=== PATIENT | male | born 1985 | race Caucasian/White ===

== ENCOUNTER 2017-12-23 01:06 | Emergency (ER) | payer SELFPAY ==
[2017-12-23] MEDS ORDERED: KETOROLAC 30 MG/ML INJ ONE (02:14)
[2017-12-23] MEDS ORDERED: NA CHLORIDE 0.9% 1,000 ML ONE (02:14)
[2017-12-23 03:07] LABS: Absolute Lymphocytes (CBC) 1.6 K/uL (0.7-4.9); Absolute Monocytes 0.6 K/uL (0.1-1.3); Absolute Neutrophil 4.8 K/uL (1.8-8.0); Basophils % 0.9 % (0-1.3); Eosinophils % 3.4 % (0-4.4); Hematocrit 37.8 % (39.6-49.0); Lymphocytes % 22.2 % (15.3-44.8); MCH 30.2 pg (27.0-35.0); MCV 85.8 fL (80-100); Monocytes % 7.8 % (3.3-12.3); RBC Red Blood Cell Count 4.41 M/uL (4.33-5.43)
[2017-12-23 03:16] LABS: ALT/SGPT 30 U/L (12-78); AST/SGOT 33 U/L (15-37); Albumin 3.8 g/dL (3.4-5.0); Alkaline Phosphatase 74 U/L (45-117); BUN Blood Urea Nitrogen 10 mg/dL (7-18); Bicarbonate 27 mmol/L (21-32); Bilirubin Direct 0.2 mg/dL (0-0.2); Bilirubin Total 0.6 mg/dL (0.2-1.0); Glucose Level 82 mg/dL (74-106); Lipase 91 U/L (73-393); Potassium 3.6 mmol/L (3.5-5.1); Protein, Total 7.4 g/dL (6.4-8.2); Sodium Level 137 mmol/L (136-145)
--- NOTE | 2017-12-23 04:39 | EDPHYS ---
Physician Documentation [facility] Name: Wagner Nicholas Age: 32 yrs Sex: Male : 1985 Arrival Date: 12/23/2017 Time: 01:09 Bed 13 Private MD: ED Physician Geoffrey Hernandez HPI: 12/23 02:07 This 32 yrs old Male presents to ER via Ambulatory with complaints of Fall olga Injury, Pain All Over. 02:07 Details of fall: The patient fell from a height, off a roof, approximately 10 feet. olga Onset: The symptoms/episode began/occurred just prior to arrival. Associated injuries: The patient sustained neck injury, upper back injury, anterior aspect of left shoulder, left bicep, posterior aspect of left shoulder and left tricep, decreased range of motion, painful injury. Severity of symptoms: At their worst the symptoms were mild, moderate, in the emergency department the symptoms are unchanged. The patient has not experienced similar symptoms in the past. Historical: - Allergies: : No Known Allergies; bb - Home Meds: : None [Active]; bb - PMHx: : None; bb - PSHx: : None; bb - Immunization history: Last tetanus immunization: unknown. - Social history:: Smoking status: Patient uses tobacco products, smokes one pack cigarettes per day. - Ebola Screening: : No symptoms or risks identified at this time. - Family history:: not pertinent. ROS: 02:07 Constitutional: Negative for fever, chills, and weight loss, Eyes: Negative for injury, olga pain, redness, and discharge, ENT: Negative for injury, pain, and discharge, Cardiovascular: Negative for chest pain, palpitations, and edema, Respiratory: Negative for shortness of breath, cough, wheezing, and pleuritic chest pain, Abdomen/GI: Negative for abdominal pain, nausea, vomiting, diarrhea, and constipation, : Negative for injury, bleeding, discharge, and swelling, Skin: Negative for injury, rash, and discoloration, Neuro: Negative for headache, weakness, numbness, tingling, and seizure. 02:07 Neck: Positive for pain with movement, pain at rest. 02:07 Back: Positive for decreased range of motion, pain at rest, of the left subscapular area, right subscapular area, thoracic area and lumbar area. 02:07 MS/extremity: Positive for pain, tenderness, of the anterior aspect of left shoulder and posterior aspect of left shoulder. Exam: 02:07 Constitutional: This is a well developed, well nourished patient who is awake, alert, olga and in no acute distress. Head/Face: Normocephalic, atraumatic. Eyes: Pupils equal round and reactive to light, extra-ocular motions intact. Lids and lashes normal. Conjunctiva and sclera are non-icteric and not injected. Cornea within normal limits. Periorbital areas with no swelling, redness, or edema. ENT: Nares patent. No nasal discharge, no septal abnormalities noted. Tympanic membranes are normal and external auditory canals are clear. Oropharynx with no redness, swelling, or masses, exudates, or evidence of obstruction, uvula midline. Mucous membranes moist. Neck: Trachea midline, no thyromegaly or masses palpated, and no cervical lymphadenopathy. Supple, full range of motion without nuchal rigidity, or vertebral point tenderness. No Meningismus. Chest/axilla: Normal chest wall appearance and motion. Nontender with no deformity. No lesions are appreciated. Cardiovascular: Regular rate and rhythm with a normal S1 and S2. No gallops, murmurs, or rubs. Normal PMI, no JVD. No pulse deficits. Respiratory: Lungs have equal breath sounds bilaterally, clear to auscultation and percussion. No rales, rhonchi or wheezes noted. No increased work of breathing, no retractions or nasal flaring. Abdomen/GI: Soft, non-tender, with normal bowel sounds. No distension or tympany. No guarding or rebound. No evidence of tenderness throughout. Back: No spinal tenderness. No costovertebral tenderness. Full range of motion. Male : Normal genitalia with no discharge or lesions. Skin: Warm, dry with normal turgor. Normal color with no rashes, no lesions, and no evidence of cellulitis. Neuro: Awake and alert, GCS 15, oriented to person, place, time, and situation. Cranial nerves II-XII grossly intact. Motor strength 5/5 in all extremities. Sensory grossly intact. Cerebellar exam normal. Normal gait. Psych: Awake, alert, with orientation to person, place and time. Behavior, mood, and affect are within normal limits. 02:07 Back: pain, that is mild, that is moderate, ROM is painful, normal spinal alignment noted, CVA tenderness, is absent, muscle spasm, is appreciated in the left scapular area, right scapular area, left subscapular area, right subscapular area, left mid back and right mid back. 02:07 : Exam negative for acute changes. 02:07 Musculoskeletal/extremity: Extremities: noted in the anterior aspect of left shoulder, left bicep, posterior aspect of left shoulder and left tricep: decreased ROM, pain. 02:07 Neuro: Exam negative for acute changes, Orientation: is normal, Mentation: is normal, appropriate for stated age, no acute changes, Memory: is normal, appropriate for stated age, no acute changes, Cranial nerves: grossly normal, is grossly normal based on the patient's age, no acute changes, Cerebellar function: is grossly normal, is grossly normal based on the patient's age, no acute changes. Vital Signs: 01:22 BP 127 / 79; Pulse 76; Resp 16 S; Temp 98.9(O); Pulse Ox 97% on R/A; Weight 81.65 kg bb (R); Height 5 ft. 10 in. (177.80 cm) (R); Pain 10/10; 03:15 BP 124 / 83; Pulse 71; Resp 14; Pulse Ox 100% ; bp 05:00 BP 120 / 75; Pulse 81; Resp 14; Pulse Ox 100% ; bp 01:22 Body Mass Index 25.83 (81.65 kg, 177.80 cm) [place] Coma Score: 01:22 Eye Response: spontaneous(4). Verbal Response: oriented(5). Motor Response: obeys bb commands(6). Total: 15. Trauma Score (Adult): 01:22 Eye Response: spontaneous(1); Verbal Response: oriented(1); Motor Response: obeys bb commands(2); Systolic BP: > 89 mm Hg(4); Respiratory Rate: 10 to 29 per min(4); [place] Score: 15; Trauma Score: 12 MDM: 01:42 Patient medically screened. [facility] 04:43 Data reviewed: vital signs, nurses notes, lab test result(s), radiologic studies, CT olga scan, plain films. 12/23 02:06 Order name: Basic Metabolic Panel; Complete Time: 04:07 [facility] 12/23 02:06 Order name: CBC with Diff; Complete Time: 04:07 [facility] 12/23 02:06 Order name: Creatinine for Radiology; Complete Time: 04:07 [facility] 12/23 02:07 Order name: LFT's; Complete Time: 04:07 [facility] 12/23 02:07 Order name: Lipase; Complete Time: 04:07 [facility] 12/23 02:54 Order name: Urine Dipstick--Ancillary (enter results) rg2 12/23 02:06 Order name: CT Traumagram (Head C Spine CAP W Con) [facility] 12/23 02:06 Order name: Labs collected and sent; Complete Time: 02:45 [facility] 12/23 02:06 Order name: Urine Dipstick-Ancillary (obtain specimen); Complete Time: 02:56 [facility] 12/23 02:06 Order name: Shoulder Left (2 View) XRAY [facility] 12/23 02:14 Order name: Tib Fib Left XRAY [facility] Administered Medications: 02:30 Drug: NS 0.9% 1000 ml Route: IV; Rate: 1 bolus; Site: right forearm; bp 04:50 Follow up: IV Status: Completed infusion; IV Intake: 1000ml bp 02:30 Drug: TORadol 30 mg Route: IVP; Site: right forearm; bp 03:25 Follow up: Response: Pain is decreased bp 05:09 Drug: [place] 10 mg-325 mg 1 tabs Route: PO; bp 05:09 Follow up: Response: Medication administered at discharge. bp Disposition: 12/23/17 04:39 Discharged to Home. Impression: Fall (on) (from) unspecified stairs and steps, Pain in left shoulder, Pain in left leg, Strain of muscle and tendon of back wall of thorax, Strain of muscle, fascia and tendon at neck level, Fracture of second thoracic vertebra - 30 % superior end plate fx. - Condition is Stable. - Discharge Instructions: Back Pain, Adult, Back, Compression Fracture, Musculoskeletal Pain, Shoulder Pain, Shoulder Pain, Rldr-[id number], Cervical Sprain, [id number], Back Pain, Adult, Eofi-wt-Jrgq. - Prescriptions for Robaxin 500 mg Oral Tablet - take 2 tablet by ORAL route every 6 hours As needed; 40 tablet. Ibuprofen 600 mg Oral Tablet - take 1 tablet by ORAL route every 6 hours As needed take with food; 20 tablet. Tramadol 50 mg Oral Tablet - take 1 tablet by ORAL route every 8 hours as needed; 30 tablet. - Medication Reconciliation Form, Thank You Letter, Antibiotic Education, Prescription Opioid Use form. - Follow up: Private Physician; When: 2 - 3 days; Reason: Recheck today's complaints, Continuance of care, Re-evaluation by your physician. Follow up: Markell Francisco MD; When: 2 - 3 days; Reason: Recheck today's complaints, Re-evaluation by your physician. - Problem is new. - Symptoms have improved. Signatures: Dispatcher [employer] EDMS Geoffrey Hernandez MD MD cha Ballard, Brenda, RN RN Emiliano Orona RN RN bp Corrections: (The following items were deleted from the chart) 04:44 04:39 12/23/2017 04:39 Discharged to Home. Impression: Fall (on) (from) unspecified olga stairs and steps; Pain in left shoulder; Pain in left leg; Strain of muscle and tendon of back wall of thorax; Strain of muscle, fascia and tendon at neck level. Condition is Stable. Discharge Instructions: Back Pain, Adult, Musculoskeletal Pain, Shoulder Pain, Shoulder Pain, [id number]-[id number], Cervical Sprain, Mubf-cf-Xiyx, Back Pain, Adult, Uaqs-go-Fred. Prescriptions for Robaxin 500 mg Oral Tablet - take 2 tablet by ORAL route every 6 hours As needed; 40 tablet, Tylenol-Codeine #3 300-30 mg Oral Tablet - take 2 tablet by ORAL route every 6 hours As needed; 30 tablet, Ibuprofen 600 mg Oral Tablet - take 1 tablet by ORAL route every 6 hours As needed take with food; 20 tablet. and Forms are Medication Reconciliation Form, Thank You Letter, Antibiotic Education, Prescription Opioid Use. Follow up: Private Physician; When: 2 - 3 days; Reason: Recheck today's complaints, Continuance of care, Re-evaluation by your physician. Problem is new. Symptoms have improved. [facility] 05:13 04:44 12/23/2017 04:39 Discharged to Home. Impression: Fall (on) (from) unspecified bp stairs and steps; Pain in left shoulder; Pain in left leg; Strain of muscle and tendon of back wall of thorax; Strain of muscle, fascia and tendon at neck level; Fracture of second thoracic vertebra - 30 % superior end plate fx. Condition is Stable. Discharge Instructions: Back Pain, Adult, Musculoskeletal Pain, Shoulder Pain, Shoulder Pain, Sqdw-um-Mfsq, Cervical Sprain, Zslk-hu-Hran, Back Pain, Adult, Hfaj-xd-Bpmi. Prescriptions for Robaxin 500 mg Oral Tablet - take 2 tablet by ORAL route every 6 hours As needed; 40 tablet, Tylenol-Codeine #3 300-30 mg Oral Tablet - take 2 tablet by ORAL route every 6 hours As needed; 30 tablet, Ibuprofen 600 mg Oral Tablet - take 1 tablet by ORAL route every 6 hours As needed take with food; 20 tablet. and Forms are Medication Reconciliation Form, Thank You Letter, Antibiotic Education, Prescription Opioid Use. Follow up: Private Physician; When: 2 - 3 days; Reason: Recheck today's complaints, Continuance of care, Re-evaluation by your physician. Follow up: Markell Francisco; When: 2 - 3 days; Reason: Recheck today's complaints, Re-evaluation by your physician. Problem is new. Symptoms have improved. olga
--- NOTE | 2017-12-23 04:39 | ER ---
Nurse's Notes [facility] Name: Wagner Nicholas Age: 32 yrs Sex: Male : 1985 Arrival Date: 12/23/2017 Time: 01:09 Bed 13 Private MD: Diagnosis: Fall (on) (from) unspecified stairs and steps;Pain in left shoulder;Pain in left leg;Strain of muscle and tendon of back wall of thorax;Strain of muscle, fascia and tendon at neck level;Fracture of second thoracic vertebra-30 % superior end plate fx Presentation: 12/23 01:22 Presenting complaint: Patient states: he was helping his dad build a carport today and bb fell off of the roof at approx 1400 and is concerned because he is having back pain, left leg, left sided rib pain, and left shoulder pain. Pt denies LOC states he did not hit his head, he took 2 ibuprofen at approx 2200. Care prior to arrival: None. Mechanism of Injury: Fall from roof. Trauma event details: Injury occurred in the [facility], Injury occurred: at home. Injury occurred: December 22, 2017. 01:22 Acuity: ANAMIKA 3 bb 01:22 Method Of Arrival: Ambulatory bb 01:26 Transition of care: patient was not received from another setting of care. Onset of bb symptoms was December 22, 2017 at 14:00. Risk Assessment: Do you want to hurt yourself or someone else? Patient reports no desire to harm self or others. Initial Sepsis Screen: Does the patient meet any 2 criteria? No. Patient's initial sepsis screen is negative. Does the patient have a suspected source of infection? No. Patient's initial sepsis screen is negative. Triage Assessment: 01:30 General: Appears in no apparent distress. uncomfortable, slender, Behavior is bp cooperative, appropriate for age, anxious. Historical: - Allergies: 01: No Known Allergies; bb - Home Meds: 01: None [Active]; bb - PMHx: : None; bb - PSHx: : None; bb - Immunization history: Last tetanus immunization: unknown. - Social history:: Smoking status: Patient uses tobacco products, smokes one pack cigarettes per day. - Ebola Screening: : No symptoms or risks identified at this time. - Family history:: not pertinent. Screenin:22 Abuse screen: Denies threats or abuse. Tuberculosis screening: No symptoms or risk bb factors identified. 05:12 Nutritional screening: No deficits noted. Fall Risk Fall in past 12 months (25 points). bp No secondary diagnosis (0 pts). No IV (0 pts). Ambulatory Aid- None/Bed Rest/Nurse Assist (0 pts). Gait- Normal/Bed Rest/Wheelchair (0 pts) Mental Status- Oriented to own ability (0 pts). Total [place] Fall Scale indicates Low Risk Score (25-44 pts). Fall prevention measures have been instituted. Side Rails Up X 2 Placed close to Nursing Station Frequent Obs/Assesments occuring As available Patient and Family Educated on Fall Prevention Program and strategies. 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 NO bp OBVIOUS TRAUMA, VS STABLE. 02:45 Reassessment: PT TO CT WITH ACIDITY TESTER. bp 03:22 Reassessment: PT RETURNING TO CT WITH ACIDITY TESTER. bp 03:53 Reassessment: PT RETURNED FROM CT. ALL CURRENT ORDERS COMPLETED. bp 05:11 Reassessment: PT D/C HOME AMBULATORY, DX WITH T2 ANTERIOR WEDGE FX. Pain: Complains of bp pain in back. Neuro: Level of Consciousness is awake, alert, obeys commands, Oriented to person, place, time, situation, Appropriate for age Barrel Cleaner are equal bilaterally Moves all extremities. Full function Gait is steady. Vital Signs: 01:22 BP 127 / 79; Pulse 76; Resp 16 S; Temp 98.9(O); Pulse Ox 97% on R/A; Weight 81.65 kg bb (R); Height 5 ft. 10 in. (177.80 cm) (R); Pain 10/10; 03:15 BP 124 / 83; Pulse 71; Resp 14; Pulse Ox 100% ; bp 05:00 BP 120 / 75; Pulse 81; Resp 14; Pulse Ox 100% ; bp 01:22 Body Mass Index 25.83 (81.65 kg, 177.80 cm) bb [place] Coma Score: 01:22 Eye Response: spontaneous(4). Verbal Response: oriented(5). Motor Response: obeys bb commands(6). Total: 15. Trauma Score (Adult): :22 Eye Response: spontaneous(1); Verbal Response: oriented(1); Motor Response: obeys bb commands(2); Systolic BP: > 89 mm Hg(4); Respiratory Rate: 10 to 29 per min(4); [place] Score: 15; Trauma Score: 12 ED Course: 01:09 Patient arrived in ED. am2 01:17 Emiliano Calvillo, RN is Primary Nurse. bp 01:22 Patient has correct armband on for positive identification. Bed in low position. Call bb light in reach. Side rails up X 1. Patient maintains SpO2 saturation greater than 95% on room air. 01:22 Patient maintains SpO2 saturation greater than 95% on room air. bb 01:24 Triage completed. bb 01:27 Patient placed in an exam room, on a stretcher, on pulse oximetry. bb 01:42 Geoffrey Hernandez MD is Attending Physician. olga 02:21 X-ray completed. Portable x-ray completed in exam room. Patient tolerated procedure kw well. 02:30 Inserted saline lock: 20 gauge in right forearm, using aseptic technique. Blood bp collected. 02:55 Shoulder Left (2 View) XRAY In Process Unspecified. EDMS 02:55 Tib Fib Left XRAY In Process Unspecified. EDMS 03:14 Radiology exam delayed due to lab results not completed at this time. (BUN/Creatinine). kw1 03:25 CT Traumagram (Head C Spine CAP W Con) Sent. bp 03:[address] via wheelchair. kw1 03:45 CT completed. Patient tolerated procedure well. Patient moved back from CT. kw1 04:18 CT Traumagram (Head C Spine CAP W Con) In Process Unspecified. EDMS 04:44 Markell Francisco MD is Referral Physician. olga 05:09 No provider procedures requiring assistance completed. IV discontinued. bp Administered Medications: 02:30 Drug: NS 0.9% 1000 ml Route: IV; Rate: 1 bolus; Site: right forearm; bp 04:50 Follow up: IV Status: Completed infusion; IV Intake: 1000ml bp 02:30 Drug: TORadol 30 mg Route: IVP; Site: right forearm; bp 03:25 Follow up: Response: Pain is decreased bp 05:09 Drug: [place] 10 mg-325 mg 1 tabs Route: PO; bp 05:09 Follow up: Response: Medication administered at discharge. bp Intake: 01:22 PO: 0ml; Total: 0ml. bb 04:50 IV: 1000ml; Total: 1000ml. bp Outcome: 04:39 Discharge ordered by . olga 05:10 Discharged to home ambulatory, with family. bp 05:10 Condition: stable 05:10 Discharge instructions given to patient, Instructed on discharge instructions, follow up and referral plans. medication usage, Demonstrated understanding of instructions, follow-up care, medications, Prescriptions given X 3. 05:13 Patient left the ED. bp Signatures: Dispatcher [employer] EDMS Geoffrey Hernandez MD MD cha Ballard, Brenda, RN RN Griselda Coppola Amanda am2 Peltier, Brian, RN RN Chandrika Torres kw1
[2017-12-23] MEDS ORDERED: HYDROCODONE/APAP 10/325 TAB ONE (04:57)
[2017-12-23 05:05] LABS: Urine Blood NEGATIVE (NEG); Urine Glucose NEGATIVE (NEG); Urine Protein NEGATIVE (NEG); Urine pH 6.5 (5.0-7.0)
--- NOTE | 2017-12-23 08:27 | RAD REPORT ---
EXAM DESCRIPTION: RAD - Shoulder Left 2 View - 12/23/2017 2:54 am CLINICAL HISTORY: PAIN Trauma, fall from height COMPARISON: No comparisons FINDINGS: No acute fracture or dislocation is seen.
--- NOTE | 2017-12-23 08:36 | RAD REPORT ---
EXAM DESCRIPTION: CT - Head C Spine Cap Sabino Petit - 12/23/2017 4:52 am CLINICAL HISTORY: Trauma, head and neck injury. Chest, abdomen and pelvis pain. PAIN COMPARISON: No comparisons TECHNIQUE: CT head without contrast. CT cervical spine without contrast with coronal and sagittal reformatted images. CT chest, abdomen and pelvis with IV contrast (approximately 100 mL nonionic IV contrast) with sharma l and sagittal reformatted images of the spine. All CT scans are performed using dose optimization technique as appropriate and may include automated exposure control or mA/KV adjustment according to patient size. FINDINGS: CT HEAD WITHOUT CONTRAST: No intracranial hemorrhage, hydrocephalus or extra-axial fluid collection. No areas of brain edema o r midline shift. The paranasal sinuses and mastoids are clear. The calvarium is intact. CT CERVICAL SPINE WITHOUT CONTRAST: No fracture or subluxation. The prevertebral soft tissues are normal in thickness. CT CHEST, ABDOMEN, PELVIS WITH CONTRAST: The lungs are clear.No pneumothorax or pericardial/pleural fluid. No evidence of intra-abdominal visceral injury, free fluid or free air. No concerning pelvic findings. Wedging of the superior endplate of the T2 vertebral body is noted with 25% loss of vertebral body he ight suspected. No canal compromise seen. Age is indeterminate. IMPRESSION: Superior endplate wedge compression fracture affecting the T2 vertebral body is noted. N o canal compromise. Age is indeterminate, but this could be an acute injury. Consider followup MR [place]ak[place] ging of the thoracic spine for further assessment. Elsewhere, no acute trauma related finding seen.
--- NOTE | 2017-12-23 08:37 | RAD REPORT ---
EXAM DESCRIPTION: RAD - Tib Fib Left - 12/23/2017 2:54 am CLINICAL HISTORY: Pain;Swelling Trauma, fall, pain COMPARISON: No comparisons FINDINGS: No fracture or dislocation is seen. Small plantar calcaneal spur noted.
== END 2017-12-23 05:13 | disposition home or self-care (01) ==
LOC: ER 01:06
DX: S22.028A Other fracture of second thoracic vertebra, initial encounter for closed fracture (principal); S29.012A Strain of muscle and tendon of back wall of thorax, initial encounter; S16.1XXA Strain of muscle, fascia and tendon at neck level, initial encounter; W13.2XXA Fall from, out of or through roof, initial encounter; Y93.9 Activity, unspecified; Y92.9 Unspecified place or not applicable; F17.210 Nicotine dependence, cigarettes, uncomplicated
CPT/HCPCS: 36415; 70450; 71260; 72125; 74177; 80048; 80076; 81003; 83690; 85025; 96361; 96374; 99285; J7030; Q9967

== ENCOUNTER 2021-04-10 17:22 | Emergency (ER) | payer SELFPAY ==
[2021-04-10] MEDS ORDERED: TETANUS & DIPHTHERIA TOX,ADULT 0.5 ML VIAL ONE (18:09)
--- NOTE | 2021-04-10 19:48 | RAD REPORT ---
EXAM DESCRIPTION: RAD - Hand Left 3 View - 04/10/2021 6:45 pm CLINICAL HISTORY: PAIN, no trauma history specified, site of pain not specified COMPARISON: None. FINDINGS: No fracture, dislocation or periosteal reaction noted. No acute bone or joint finding evid ent. No foreign body or other soft tissue abnormality. IMPRESSION: Negative left hand examination.
--- NOTE | 2021-04-10 20:04 | ER ---
Nurse's Notes [facility] Name: Wagner Nicholas Age: 35 yrs Sex: Male : 1985 Arrival Date: 04/10/2021 Time: 17:25 Bed 9 Private MD: Diagnosis: Abrasion of left hand Presentation: 04/10 17:37 Chief complaint: Patient states: "I smashed my finger today at work with a backhoe.". ld1 Coronavirus screen: At this time, the client does not indicate any symptoms associated with coronavirus-19. Ebola Screen: No symptoms or risks identified at this time. Initial Sepsis Screen: Does the patient meet any 2 criteria? No. Patient's initial sepsis screen is negative. Does the patient have a suspected source of infection? No. Patient's initial sepsis screen is negative. Risk Assessment: Do you want to hurt yourself or someone else? Patient reports no desire to harm self or others. Onset of symptoms was April 10, 2021. 17:37 Method Of Arrival: Ambulatory ld1 17:37 Acuity: ANAMIKA 4 ld1 Triage Assessment: 17:39 General: Appears in no apparent distress. comfortable, Behavior is calm, cooperative, ld1 appropriate for age. Pain: Complains of pain in dorsal aspect of distal phalanx of left thumb and dorsal aspect of proximal phalanx of left thumb Pain does not radiate. Pain currently is 7 out of 10 on a pain scale. Quality of pain is described as sharp, Pain began 2 hours ago. Is continuous. EENT: No signs and/or symptoms were reported regarding the EENT system. Neuro: Level of Consciousness is awake, alert, obeys commands, Oriented to person, place, time, situation. Cardiovascular: Capillary refill < 3 seconds Patient's skin is warm and dry. Respiratory: Airway is patent Respiratory effort is even, unlabored, Respiratory pattern is regular, symmetrical. GI: Abdomen is flat, non-distended. : No signs and/or symptoms were reported regarding the genitourinary system. Derm: No signs and/or symptoms reported regarding the dermatologic system. Musculoskeletal: Reports pain in dorsal aspect of distal phalanx of left thumb and dorsal aspect of proximal phalanx of left thumb. Injury Description: Crush injury sustained to dorsal aspect of distal phalanx of left thumb, dorsal aspect of proximal phalanx of left thumb and left thumbnail. Historical: - Allergies: 17:39 No Known Allergies; ld1 - Home Meds: 17:39 None [Active]; ld1 - PMHx: 17:39 None; ld1 - PSHx: 17:39 None; ld1 - Immunization history:: Adult Immunizations not up to date, Client reports having NOT received the Covid vaccine. - Social history:: Smoking status: Patient reports the use of cigarette tobacco products, smokes one-half pack cigarettes per day, Patient uses alcohol. Screenin:41 Abuse screen: Denies threats or abuse. Denies injuries from another. Nutritional ld1 screening: No deficits noted. Tuberculosis screening: No symptoms or risk factors identified. Fall Risk None identified. Assessment: 17:41 Reassessment: See triage assessment. ld1 18:58 Reassessment: Patient appears in no apparent distress at this time. Patient and/or ld1 family updated on plan of care and expected duration. Pain level reassessed. Patient is alert, oriented x 3, equal unlabored respirations, skin warm/dry/pink. 19:33 Reassessment: Patient appears in no apparent distress at this time. Patient and/or fu family updated on plan of care and expected duration. Pain level reassessed. Patient is alert, oriented x 3, equal unlabored respirations, skin warm/dry/pink. Vital Signs: 17:37 BP 132 / 68; Pulse 86; Resp 18; Temp 98.3(O); Pulse Ox 100% on R/A; Weight 85.73 kg; ld1 Height 5 ft. 10 in. (177.80 cm); Pain 7/10; 18:58 BP 138 / 74; Pulse 88; Resp 18; Pulse Ox 100% on R/A; ld1 17:37 Body Mass Index 27.12 (85.73 kg, 177.80 cm) ld1 ED Course: 17:25 Patient arrived in ED. as 17:30 Shea Rodriguez FNP-C is PHCP. kb 17:30 Juanito Beasley MD is Attending Physician. kb 17:33 Ayde Mccollum, JENNY is Primary Nurse. ld1 17:39 Triage completed. ld1 17:39 Arm band placed on right wrist. ld1 17:41 Patient has correct armband on for positive identification. Bed in low position. Call ld1 light in reach. Side rails up X2. Pulse ox on. NIBP on. Door closed. Noise minimized. Warm blanket given. 17:41 No provider procedures requiring assistance completed. ld1 18:45 Hand Left 3 View XRAY In Process Unspecified. EDMS 20:05 Patient did not have IV access during this emergency room visit. fu Administered Medications: 17:49 Drug: Tetanus-Diphtheria Toxoid Adult 0.5 ml {Hyperbaric Technologist: [employer]. Exp: ld1 10/24/2022. Lot #: [id number]. } Route: IM; Site: right deltoid; 19:00 Follow up: Response: No adverse reaction fu Outcome: 20:03 Discharge ordered by . [email or web address] 20:08 Discharged to home ambulatory. fu 20:08 Condition: good 20:08 Discharge instructions given to patient, Did not sign discharge instruction before leaving 20:10 Patient left the ED. fu Signatures: Dispatcher [employer] EDCO Shea Rodriguez, EVI-Marissa STEVE-Kiya Ayala Felix, RN RN Ayde Mccollum, JENNY RN ld1
--- NOTE | 2021-04-10 20:04 | EDPHYS ---
Physician Documentation [facility] Name: Wagner Nicholas Age: 35 yrs Sex: Male : 1985 Arrival Date: 04/10/2021 Time: 17:25 Bed 9 Private MD: ED Physician Juanito Beasley HPI: 04/10 21:00 This 35 yrs old Male presents to ER via Ambulatory with complaints of Thumb kb Injury. 21:00 The patient or guardian reports an abrasion, injury, pain. The complaints affect the kb dorsal aspect of proximal phalanx of left thumb. Context: The problem was sustained outdoors, resulted from a crush injury, backhoe. Onset: The symptoms/episode began/occurred today. Modifying factors: The symptoms are alleviated by nothing, the symptoms are aggravated by nothing. Associated signs and symptoms: The patient has no apparent associated signs or symptoms. Severity of symptoms: At their worst the symptoms were mild, in the emergency department the symptoms are unchanged. The patient has not experienced similar symptoms in the past. The patient has not recently seen a physician. 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 . Historical: - Allergies: 17:39 No Known Allergies; ld1 - Home Meds: 17:39 None [Active]; ld1 - PMHx: 17:39 None; ld1 - PSHx: 17:39 None; ld1 - Immunization history:: Adult Immunizations not up to date, Client reports having NOT received the Covid vaccine. - Social history:: Smoking status: Patient reports the use of cigarette tobacco products, smokes one-half pack cigarettes per day, Patient uses alcohol. ROS: 20:59 Constitutional: Negative for fever, chills, and weight loss. kb 20:59 MS/extremity: Positive for abrasion, pain, of the dorsal aspect of proximal phalanx of left thumb. 20:59 Skin: Positive for abrasion(s), of the dorsal aspect of proximal phalanx of left thumb. 20:59 All other systems are negative. Exam: 20:59 Constitutional: This is a well developed, well nourished patient who is awake, alert, kb and in no acute distress. Head/Face: Normocephalic, atraumatic. ENT: Moist Mucous membranes Respiratory: Respirations even and unlabored. No increased work of breathing, no retractions or nasal flaring. MS/ Extremity: Pulses equal, no cyanosis. Neurovascular intact. Full, normal range of motion. Neuro: Awake and alert, GCS 15, oriented to person, place, time, and situation. Moves all extremities. Normal gait. Psych: Awake, alert, with orientation to person, place and time. Behavior, mood, and affect are within normal limits. 20:59 Skin: injury, abrasion(s), small abrasion noted, of the dorsal aspect of proximal phalanx of left thumb. Vital Signs: 17:37 BP 132 / 68; Pulse 86; Resp 18; Temp 98.3(O); Pulse Ox 100% on R/A; Weight 85.73 kg; ld1 Height 5 ft. 10 in. (177.80 cm); Pain 7/10; 18:58 BP 138 / 74; Pulse 88; Resp 18; Pulse Ox 100% on R/A; ld1 17:37 Body Mass Index 27.12 (85.73 kg, 177.80 cm) ld1 MDM: 17:33 Patient medically screened. kb 20:58 Data reviewed: vital signs, nurses notes. Data interpreted: Pulse oximetry: on room air kb is 100 %. Interpretation: normal. Counseling: I had a detailed discussion with the patient and/or guardian regarding: the historical points, exam findings, and any diagnostic results supporting the discharge/admit diagnosis, radiology results, the need for outpatient follow up, a family practitioner, to return to the emergency department if symptoms worsen or persist or if there are any questions or concerns that arise at home. 04/10 17:37 Order name: Hand Left 3 View XRAY; Complete Time: 19:57 kb 04/10 19:36 Order name: Wound Care: clean wound; Complete Time: 20:09 kb Administered Medications: 17:49 Drug: Tetanus-Diphtheria Toxoid Adult 0.5 ml {Polysomnographic Tech: [employer]. Exp: ld1 10/24/2022. Lot #: [id number]. } Route: IM; Site: right deltoid; 19:00 Follow up: Response: No adverse reaction fu Disposition Summary: 04/10/21 20:03 Discharge Ordered Location: Home kb Condition: Stable kb Diagnosis - Abrasion of left hand kb Followup: kb - With: Emergency Department - When: As needed - Reason: Worsening of condition Followup: kb - With: Private Physician - When: 2 - 3 days - Reason: Recheck today's complaints, Continuance of care, Re-evaluation by your physician Discharge Instructions: - Discharge Summary Sheet kb - Abrasion, [id number]-Doky kb Forms: - Medication Reconciliation Form kb - Thank You Letter kb - Antibiotic Education kb - Prescription Opioid Use kb Addendum: 04/13/2021 23:00 Co-signature as Attending Physician, Juanito Beasley MD PA/KIER BOILER's history reviewed, m a2 patient interviewed, and examined. I agree with assessment and care plan and confirm the diagnosis (es) above. Signatures: Dispatcher [employer] EDMS Shea Rodriguez, EVI-C COMPOUNDING PHARMACY TECHNICIAN-Juanito Hull MD MD ma2 Ayde Mccollum RN RN ld1 Good Pulido RN
[2021-04-10 20:16] VITALS: TEMP 98.3; O2SAT 100
[2021-04-10 20:17] VITALS: BP 138/74
== END 2021-04-10 20:10 | disposition home or self-care (01) ==
LOC: ER 17:22
DX: S60.312A Abrasion of left thumb, initial encounter (principal); F17.210 Nicotine dependence, cigarettes, uncomplicated; W31.89XA Contact with other specified machinery, initial encounter; Z23 Encounter for immunization
CPT/HCPCS: 90471; 90714; 99283